=== PATIENT | male | born 1935 | race Caucasian/White ===

== ENCOUNTER → 2017-02-14 17:37 | Outpatient (CLI) | payer MEDICARE, BC ==
[2014-11-25 06:11] VITALS: BMI 27.6
[~2017-02-14 17:37] MED LIST: ASPIRIN325 MG PO; CALTRATE 600 M600 M1 PO; COZAAR50 MG PO; EZFE 200200 MG PO; LIPITOR40 MG PO; MAGNESIUM OXID250 MG PO; MIRAPEX1 MG PO; MULTIPLE VITAMI1 TA1 PO; NAPROSYN250 MG PO; PERCOCET 10/3251 TA1 PO; PRILOSEC20 MG PO; PROZAC20 MG PO; ZESTRIL20 MG PO
== END | disposition home or self-care (01) ==
LOC: D.LABREF 17:37
DX: M25.512 Pain in left shoulder (principal); Z11.8 Encounter for screening for other infectious and parasitic diseases

== ENCOUNTER 2017-03-05 05:26 | Inpatient (IN) | payer MEDICARE, BC ==
[2017-03-01 10:59] LABS: BASOPHILS 0.2 % (0-2); EOSINOPHILS 1.7 % (0-7); HEMATOCRIT 54.4 % (42.0-54.0); HEMOGLOBIN 18.4 g/dL (13.5-17.5); IMMATURE GRANULOCYTES 0.7 % (0-5); LYMPHOCYTES 22.9 % (15-50); MCH 34.1 pg (26.0-34.0); MCHC 33.8 g/dL (31.0-37.0); MCV 100.7 fL (80.0-100.0); MEAN PLATELET VOLUME 9.5 fL (7.4-10.4); MONOCYTES 8.5 % (2-11); PLATELET COUNT 141 10x3/uL (130-400); RDW 13.9 % (11.5-14.5); WBC 10.5 10x3/uL (4.8-10.8)
[2017-03-01 11:03] LABS: APPEARANCE CLEAR (CLEAR); BILIRUBIN NEGATIVE (NEGATIVE); COLOR YELLOW (YELLOW); GLUCOSE NEGATIVE (NEGATIVE); KETONE NEGATIVE (NEGATIVE); NITRITE NEGATIVE (NEGATIVE); PROTEIN NEGATIVE (NEGATIVE); UROBILINOGEN NORMAL (NORMAL)
[2017-03-01 11:16] LABS: APTT 27.4 SECONDS (22.8-39.4); INR 1.05 (0.85-1.17); PROTIME 13.5 SECONDS (11.6-15.0)
[2017-03-01 11:20] LABS: ANION GAP 10.7 mmol/L (8-16); CALCIUM 9.3 mg/dL (8.5-10.1); CARBON DIOXIDE 29.8 mmol/L (21.0-32.0); CREATININE - SERUM 1.1 mg/dL (0.6-1.3); POTASSIUM - SERUM 4.5 mmol/L (3.5-5.1)
[2017-03-05] VITALS (10 sets, daily range): BP systolic 92–142; BP diastolic 40–96; BMI 26.3
[~2017-03-05 05:26] MED LIST changes: -PERCOCET 10/3251 TA1 PO
--- NOTE | 2017-03-05 14:16 | NUR ---
SCDS APPLIED TO BILAT LOWER LEG. EXPLAINED TO PT AND FAMILY REASON FOR THEM. SIPPING CUP OF COFFEE AT PRESENT. NO NEEDS AT THIS TIME
--- NOTE | 2017-03-05 15:49 | OP ---
PATIENT NAME: JAVIER TUCKER MEDICAL RECORD: [id number] :35 LOCATION:D.[id number] ADMISSION DATE:03/05/17 SURGEON: HOLLY BARRIENTOS MD DATE OF OPERATION: 03/05/2017 PREOPERATIVE DIAGNOSIS: Chronic rotator cuff arthropathy of the left shoulder. POSTOPERATIVE DIAGNOSIS: Chronic rotator cuff arthropathy of the left shoulder. PROCEDURE: Reverse total shoulder arthroplasty of the left shoulder. ANESTHESIA: General. INTRAOPERATIVE COMPLICATIONS: None. SUMMARY OF PATHOLOGIC FINDINGS: The patient had substantial rotator cuff arthropathy with retracted tearing, significant glenohumeral arthritis as well as superolateral erosion. IMPLANTS USED: Arthrex reverse total shoulder arthroplasty system 135, 36 glenosphere, 36 metaphyseal component with a +6 polyethylene on a size 11 stem press-fit. OPERATIVE SUMMARY IN DETAIL: After obtaining the appropriate preoperative orthopedic surgery consent as well as anesthetic consultation, evaluation and clearance, the patient was brought to the operating room and placed on the operating table in supine position. After adequate general laryngeal mask airway was administered, the patient was placed in the beach chair position. All pressure points were well padded to include down leg peroneal pad as well as axillary roll. The patient was held firmly to the operating table using the vacuum pack suction system. The left upper extremity and shoulder were then prepped and draped in routine sterile fashion. The arm was held in Trimano arm holding device. Deltopectoral incision was taken down to the level of clavipectoral fascia which was incised. The cephalic vein was protected throughout the rest of the case and was unharmed at the end. Conjoined tendon was very gently retracted medially. The residual subscapularis was taken down and the humeral head was then dislocated into the wound. Proximal humeral head cut was made using the humeral head cutting guide. At this point, the cut protector was then tamped into place in the metaphyseal bone and the glenoid was approached. Circumferential labrectomy was followed by central pin placement and then the appropriate reaming for the metaglene component. Metaglene component was first anchored medially with compression screw and then inferiorly and superiorly with locking screws. Size 36 glenosphere was then put into place and tamped into place on the Cho taper with good fixation. Attention was then returned to the proximal humerus. The cut protection guide was taken off. Proximal reaming was then followed by serial and sequential reaming and broaching for a size 11. Size 11 stem and proximal metaphyseal component were tamped into place. Trials were undertaken and it was felt that the +6 was the most appropriate, +6 polyethylene was snapped [address]. Shoulder was reduced and taken through range of motion and found to be stable in all planes. Having completed this, the wound was copiously irrigated. The subscapularis was reapproximated back to the lesser tuberosity. Wound was again irrigated and closed with #1 Vicryl followed by skin maykel. Sterile dressings were applied. The patient was awakened and taken to recovery room in stable condition. All final needle and sponge counts were correct. OPERATIVE REPORT [id number] JAVIER TUCKER TRANSINT:[id number] Voice Confirmation ID: [id number] DOCUMENT ID: [id number] FLOYD HUNT, HOLLY STONE at 1549 CC: [id number] DICTATION DATE: 03/05/17 1221 AUXILIARY EQUIPMENT TENDER: 03/05/17 1447 ADM IN [facility] [address] [place] [address]
--- NOTE | 2017-03-05 20:51 | NUR ---
REC'D.IN BED SITTING IN UPRIGHT POSITION.DRSG. DRY AND INTACT TO LEFT SHOULDER.WITH CONTINUOUS BLK. INFUSING.VOIDED 200CC SULMA COLORED URINE.FINGERS/NAILBED PINK WARM BLANCHES WELL.GOOD RADIAL PULSE. SLING IN PLACE. WILL CONTINUE TO MONITORFOR ANY CHGES. AND FOLLOW CURRENT PLAN OF CARE.
[2017-03-06] VITALS: BP 102/59
[2017-03-06 04:00] VITALS: BP 121/68
[2017-03-06 06:25] LABS: HEMATOCRIT 49.1 % (42.0-54.0); MCH 32.9 pg (26.0-34.0); MCHC 32.6 g/dL (31.0-37.0); MCV 100.8 fL (80.0-100.0); MEAN PLATELET VOLUME 9.8 fL (7.4-10.4); RBC 4.87 10x6/uL (4.20-6.10); RDW 14.2 % (11.5-14.5); WBC 16.4 10x3/uL (4.8-10.8)
--- NOTE | 2017-03-06 07:30 | NUR ---
RECIEVED PT DURING WALKING ROUNDS. PT RESTING IN BED WITH NO COMPLAINTS OF PAIN OR DISCOMFORT AT THIS TIME. ASSESSMENT DONE PER FLOWSHEET. BED IN LOW POSITION AND CALL LIGHT WITHIN REACH. WILL CONTINUE TO MONITOR.
[2017-03-06] MEDS ORDERED: PERCOCET 10/3251 TA1 PO (08:22)
[2017-03-06 08:25] VITALS: BP 142/74
--- NOTE | 2017-03-06 08:33 | NUR ---
CM visited with patient and to see if they were in need of anything prior to discharging today. Both stated that they were good and denied any needs at this time.
--- NOTE | 2017-03-06 11:45 | NUR ---
EPIDURAL BLOCK REMOVED AT THIS TIME BY DR. TARIQ. PT AWAITING DISCHARGE. WILL CONTINUE TO MONITOR.
[2017-03-06 11:53] VITALS: BP 126/61
--- NOTE | 2017-03-06 13:21 | NUR ---
IV REMOVED AND DISCHARGE INSTRUCTIONS GIVEN. PT DISCHARGED VIA WHEELCHAIR TO HOME WITH A FAMILY MEMBER.
== END 2017-03-06 13:22 | disposition home or self-care (01) | DRG 483 ==
LOC: D.SDCHOLD 05:26 → D.MS 13:07
PROVIDERS: ADMIT Orthopaedic Surgery
PROC: 0RRK00Z Replacement of Left Shoulder Joint with Reverse Ball and Socket Synthetic Substitute, Open Approach (ICD-10-PCS; principal; 2017-03-05 10:00)
DX: M12.812 Other specific arthropathies, not elsewhere classified, left shoulder (principal); M13.812 Other specified arthritis, left shoulder; Z86.73 Personal history of transient ischemic attack (TIA), and cerebral infarction without residual deficits; I25.10 Atherosclerotic heart disease of native coronary artery without angina pectoris; Z95.5 Presence of coronary angioplasty implant and graft; I10 Essential (primary) hypertension

== ENCOUNTER 2019-07-14 22:41 | Inpatient (IN) | payer MEDICARE, BC ==
[~2019-07-14] VITALS: Ht 171.4 cm; Wt 76.8 kg
[~2019-07-14 22:41] MED LIST changes: +PERCOCET 10/3251 TA1 PO
[2019-07-14] MEDS ORDERED: PROZAC20 MG PO (23:05)
[2019-07-14] MEDS ORDERED: COZAAR50 MG PO (23:05)
[2019-07-14] MEDS ORDERED: LIPITOR40 MG PO (23:05)
[2019-07-14] MEDS ORDERED: MIRAPEX1 MG PO (23:06)
[2019-07-14] MEDS ORDERED: OMEPRAZOLE20 M1 PO (23:06)
[2019-07-14] MEDS ORDERED: NEURONTIN 300300 MG PO (23:06)
--- NOTE | 2019-07-14 23:15 | NUR ---
OCCULT STOOL NEG INFORMED.
[2019-07-15 01:10] LABS: CKMB 1.3 U/L (0.0-3.6); CREATINE KINASE 116 UL (21-232); TROPONIN-I 0.029 ng/mL (0.000-0.060)
[2019-07-15 02:00] LABS: HEMATOCRIT 50.2 % (42.0-54.0); HEMOGLOBIN 17.1 g/dL (13.5-17.5); MCH 33.5 pg (26.0-34.0); MCHC 34.1 g/dL (31.0-37.0); MCV 98.2 fL (80.0-100.0); MEAN PLATELET VOLUME 9.9 fL (7.4-10.4); RBC 5.11 10x6/uL (4.20-6.10); WBC 10.9 10x3/uL (4.8-10.8)
[2019-07-15 02:04] LABS: INR 1.14 (0.85-1.17); PROTIME 14.6 SECONDS (11.6-15.0)
[2019-07-15 04:19] LABS: BILIRUBIN NEGATIVE (NEGATIVE); GLUCOSE NEGATIVE (NEGATIVE); KETONE NEGATIVE (NEGATIVE); NITRITE NEGATIVE (NEGATIVE); UROBILINOGEN NORMAL (NORMAL)
[2019-07-15 04:20] LABS: BACTERIA NONE SEEN /hpf (NEGATIVE); EPITHELIAL CELLS 0-5 /hpf (0-5); RED CELLS - URINE 0-5 /hpf (0-5); WHITE CELLS - URINE 0-5 /hpf (NEGATIVE)
[2019-07-15 05:22] VITALS: BP 112/50
[2019-07-15 05:45] VITALS: BP 112/50; BMI 26.3
--- NOTE | 2019-07-15 05:57 | NUR ---
RECEIVED REPORT FROM DALE ROJAS IN ER. ARRIVED TO FLOOR ON STRETCHER. TRANSFERED SELF TO FLOOR. ALERT AND ORIENTED X4. UP AD MANDY. DENIES ANY CHEST PAIN. F/C INTACT WITH CLEAR YELLOW URINE DRAINING TO BEDSIDE DRAINAGE BAG. SKIN INTACT. IV TO RT FA WITH HEPRIN INFUSING AT 13CC/HR. DENIES ANY NEEDS. ASSESSMENT COMPLETED.
[2019-07-15 11:02] VITALS: BP 119/65
[2019-07-15 12:00] VITALS: BP 128/65
[2019-07-15 13:21] VITALS: BMI 26.2
--- NOTE | 2019-07-15 14:03 | NUR ---
PT RESTING COMFORTABLY IN BED, DENIES ANY NEEDS AT THIS TIME. CALL LIGHT IN REACH, NAD NOTED, WILL CONTINUE TO MONITOR.
[2019-07-15 14:55] VITALS: Ht 171.4 cm; Wt 76.8 kg
--- NOTE | 2019-07-15 15:07 | NUR ---
Rehab Note - Acute Inpatient Rehab prescreen order received. The patient is a new admit, has pending PT Eval at this time. Will follow at this time. Thank you for this referral! Marie Hou RN Clinical Liaison, [facility] [place], [place] Rehab
[2019-07-15 15:29] LABS: ALBUMIN 3.4 g/dL (3.4-5.0); ANION GAP 16.8 mmol/L (8-16); BILIRUBIN - TOTAL 0.65 mg/dL (0.2-1.3); CALCIUM 8.9 mg/dL (8.5-10.1); CARBON DIOXIDE 24.7 mmol/L (21.0-32.0); CREATININE - SERUM 1.4 mg/dL (0.6-1.3); POTASSIUM - SERUM 4.5 mmol/L (3.5-5.1); PROTEIN - SERUM 6.6 g/dL (6.4-8.2)
[2019-07-15 16:00] VITALS: BP 148/89
--- NOTE | 2019-07-15 19:47 | NUR ---
PT LYING IN BED AWAKE ALERT AND ORIENTED x4 NO SIGNS OR SYMPTOMS OF DISTRESS NOTED. RESPIRATIONS EVEN AND UNLABORED. NO COMPLAINTS AT THIS TIME. PT ENCOURAGED TO CALL FOR HELP WHEN GETTING IN AND OUT OF BED. CALL LIGHT WITH INREACH AND BED ISIN THE LOWEST POSITON. WILL CONTINUE TO MONITOR.
[2019-07-15 22:02] VITALS: BP 139/74
[2019-07-16 01:14] VITALS: BP 118/68
--- NOTE | 2019-07-16 01:42 | NUR ---
I have reviewed this patient and I concur with the Shift Assessment completed by the Licensed Practical Nurse today this shift.
--- NOTE | 2019-07-16 03:04 | NUR ---
PT LYING IN BED RESTING WITH EYES CLOSED. NO SIGNS OF DISTRESS NOTED. RESPIRATIONS EVEN AND UNLABORED. PT ENCOURAGED TO CALL FOR HELP WHEN GETTING IN AND OUT OF BED. PT VERBALIZES UNDERSTANDING. CALL LIGHT WITH IN REACH AND BED IS INITS LOWEST POSITION. WILL CONTINUE TO MONITOR
[2019-07-16 04:37] LABS: HEMATOCRIT 50.1 % (42.0-54.0); HEMOGLOBIN 16.5 g/dL (13.5-17.5); MCHC 32.9 g/dL (31.0-37.0); MEAN PLATELET VOLUME 9.6 fL (7.4-10.4); RDW 14.2 % (11.5-14.5)
[2019-07-16 04:40] LABS: MCV 100.2 fL (80.0-100.0); WBC 7.1 10x3/uL (4.8-10.8)
[2019-07-16 06:51] VITALS: BP 140/77
--- NOTE | 2019-07-16 08:29 | NUR ---
AM MEDS GIVEN AT THIS TIME. PT UP TO SIDE OF BED, EATING BREAFAST. RT FA INFUSING HEPARIN AT 10CC/HR. KAUFMAN DRAINING DARK URINE TO GRAVITY. PT DENIES ANY NEEDS AT THIS TIME. CALL LIGHT IN REACH, NAD NOTED, WILL CONTINUE TO MONITOR.
[2019-07-16 11:25] VITALS: BP 120/48
[2019-07-16 14:26] VITALS: BP 105/60
--- NOTE | 2019-07-16 14:30 | NUR ---
HELPED PT TO BATHROOM AND BACK TO BED. PT DENIES ANY OTHER NEEDS AT THIS TIME. CALL LIGHT IN REACH, NAD NOTED, WILL CONTINUE TO MONITOR.
--- NOTE | 2019-07-16 18:08 | MORECARE ---
CASE MANAGEMENT DISCHARGE SUMMARY PATIENT: JAVIER TUCKER UNIT: [id number] ADM DATE: 07/15/19 AGE: 84 : 35 SEX: M ROOM/BED: D.2140 AUTHOR: NOHEMI,DOC PHYSICIAN: REFERRING PHYSICIAN: MELANIE FRIAS MD DATE OF SERVICE: 07/16/19 Discharge Plan Patient Name: JAVIER TUCKER Facility: [facility]:[place] : 1935 Planned Disposition: Home Anticipated Discharge Date: 07/16/19 Discharge Date: Expected LOS: 1 Initial Reviewer: [email or web address] Initial Review Date: 07/16/2019 Generated: 07/16/19 7:07 pm Comments DCP- Discharge Planning Updated by [email or web address]: Koffi Baker on 07/16/19 5:[address] Patient Name: JAVIER TUCKER Admission Status: ER Accout number: [id number] Admission Date: 07-15-2019 : 1935 Admission Diagnosis: Attending: MELANIE FRIAS Current LOS: 1 Anticipated DC Date: 07-16-2019 Planned Disposition: Home Primary Insurance: MEDICARE A & B Discharge Planning Comments: CM RECEIVED ORDER FOR INPATIENT REHAB PRESCREENING. CM MET WITH PT IN ROOM TO DISCUSS DISCHARGE PLANNING AND NEEDS. PT REPORTS LIVING AT HOME INDEPENDENTLY WITH HIS SPOUSE. PT HAS A CANE HE USES OCCAISIONALLY. [facility]. PT HAS NO OUTSIDE SERVICES ASSISTING IN THE HOME. CM DISCUSSED AVAILABILITY OF HOME HEALTH, REHAB SERVICES AND MEDICAL EQUIPMENT. PT DENIES DISCHARGE NEEDS, REPORTS HIS WILL PICK HER UP FOR DISCHARGE HOME. IMPORTANT MESSAGE FROM MEDICARE PROVIDED AND EXPLAINED. REFUSAL OF INPATIENT REHAB SIGNED. PT PLANS TO GO HOME WITH SPOUSE, DENIES DISCHARGE NEEDS. CM TO FOLLOW AND ASSIST IF NEEDED. Wet Chemistry Analyst: Koffi Baker DCPIA - Discharge Planning Initial Assessment Updated by [id number]: Koffi Baker on 07/16/19 6:02 pm * Is the patient Alert and Oriented? Yes * How many steps to enter\exit or inside your home? * [facility] [place] [facility] [place] * Preadmission Environment Home with Family * ADLs Independent * Equipment Cane * Other Equipment [facility] IS PREFERRED PROVIDER * List name and contact numbers for known caregivers / representatives who currently or will assist patient after discharge: YVAN TUCKER SPOUSE, * Verbal permission to speak to the caregivers and representatives has been obtained from the patient. N/A * Community resources currently utilized None * Please name any agencies selected above. NONE * Additional services required to return to the preadmission environment? No * Can the patient safely return to the preadmission environment? Yes * Has this patient been hospitalized within the prior 30 days at any hospital? No Coverage Notice Reviewer: [email or web address] Baker Notice Issued Date-Time: 07/16/2019 13:30 Notice Type: Patient Choice Letter Notice Delivered To: Patient Relationship to Patient: Physician Neonatology Name: Delivery Method: HAND - Hand Delivered Stephanie Days: Prior Verbal Notification: Recipient Understood Notice: Yes Recipient Signature: Yes Med Rec Note Co-signed by Attending: Coverage Notice Comment: REFUSED INPAITIENT REHAB Reviewer: [email or web address] Baker Notice Issued Date-Time: 07/16/2019 13:30 Notice Type: IM Discharge Notice Notice Delivered To: Patient Relationship to Patient: Physician Neonatology Name: Delivery Method: HAND - Hand Delivered Stephanie Days: Prior Verbal Notification: Recipient Understood Notice: Yes Recipient Signature: Yes Med Rec Note Co-signed by Attending: Coverage Notice Comment: Patient Name: JAVIER TUCKER Page [phone] at 1808 All edits/amendments must be made on the electronic document DICTATION DATE: 07/16/191806 POLITICAL ORGANIZER: COLT 07/16/191806 RPT#: [id number] DC DATE: STATUS: ADM IN [facility] [address] [place] [address] END OF REPORT
[2019-07-16 18:31] VITALS: BP 150/72
[2019-07-16 20:00] VITALS: BP 133/77
--- NOTE | 2019-07-16 20:21 | NUR ---
EVENING ROUNDS COMPLETED. PT AAOX4, VSS, NO S/S OF DISTRESS. PT DENIES PAIN. KAUFMAN INTACT/DRAINING. URINE APPEARS SULMA/CONC. PT DENIES ANY FURTHER NEEDS AT THIS TIME. WILL CPOC. CL WITHIN REACH. HEPARIN INFUSING @1O.
[2019-07-17 01:33] VITALS: BP 128/75
[2019-07-17 04:00] VITALS: BP 135/76
[2019-07-17 05:55] LABS: HEMATOCRIT 49.9 % (42.0-54.0); HEMOGLOBIN 16.7 g/dL (13.5-17.5); MCH 33.1 pg (26.0-34.0); MCHC 33.5 g/dL (31.0-37.0); MEAN PLATELET VOLUME 9.4 fL (7.4-10.4); RBC 5.04 10x6/uL (4.20-6.10); RDW 13.8 % (11.5-14.5)
[2019-07-17 05:59] LABS: WBC 8.9 10x3/uL (4.8-10.8)
[2019-07-17 09:35] VITALS: BP 136/68
[2019-07-17] MEDS ORDERED: ELIQUIS5 MG PO (12:00)
[2019-07-17] MEDS ORDERED: ELIQUIS2.5 MG PO (12:01)
[2019-07-17] MEDS ORDERED: FLOMAX0.4 MG PO (12:08)
[2019-07-17 13:42] VITALS: BP 128/69
--- NOTE | 2019-07-18 09:56 | MORECARE ---
CASE MANAGEMENT DISCHARGE SUMMARY PATIENT: JAVIER TUCKER UNIT: [id number] ADM DATE: 07/15/19 AGE: 84 : 35 SEX: M ROOM/BED: D.2140 AUTHOR: NOHEMI,DOC PHYSICIAN: REFERRING PHYSICIAN: MELANIE FRIAS MD DATE OF SERVICE: 07/18/19 Discharge Plan Patient Name: JAVIER TUCKER Facility: [facility]:[place] : 1935 Planned Disposition: Home Anticipated Discharge Date: 07/17/19 Discharge Date: 07/17/2019 Expected LOS: 2 Initial Reviewer: [email or web address] Initial Review Date: 07/16/2019 Generated: 07/18/19 10:56 am DCP- Discharge Planning Updated by [email or web address]: Koffi Baker on 07/16/19 5:[address] Patient Name: JAVIER TUCKER Admission Status: ER Accout number: [id number] Admission Date: 07-15-2019 : 1935 Admission Diagnosis: Attending: MELANIE FRIAS Current LOS: 1 Anticipated DC Date: 07-16-2019 Planned Disposition: Home Primary Insurance: MEDICARE A & B Discharge Planning Comments: CM RECEIVED ORDER FOR INPATIENT REHAB PRESCREENING. CM MET WITH PT IN ROOM TO DISCUSS DISCHARGE PLANNING AND NEEDS. PT REPORTS LIVING AT HOME INDEPENDENTLY WITH HIS SPOUSE. PT HAS A CANE HE USES OCCAISIONALLY. [facility]. PT HAS NO OUTSIDE SERVICES ASSISTING IN THE HOME. CM DISCUSSED AVAILABILITY OF HOME HEALTH, REHAB SERVICES AND MEDICAL EQUIPMENT. PT DENIES DISCHARGE NEEDS, REPORTS HIS WILL PICK HER UP FOR DISCHARGE HOME. IMPORTANT MESSAGE FROM MEDICARE PROVIDED AND EXPLAINED. REFUSAL OF INPATIENT REHAB SIGNED. PT PLANS TO GO HOME WITH SPOUSE, DENIES DISCHARGE NEEDS. CM TO FOLLOW AND ASSIST IF NEEDED. Janitor Supervisor: Koffi Baker DCPIA - Discharge Planning Initial Assessment Updated by [id number]: Koffi Baker on 07/16/19 6:02 pm * Is the patient Alert and Oriented? Yes * How many steps to enter\exit or inside your home? * [facility] [place] [facility] [place] * Preadmission Environment Home with Family * ADLs Independent * Equipment Cane * Other Equipment [facility] IS PREFERRED PROVIDER * List name and contact numbers for known caregivers / representatives who currently or will assist patient after discharge: YVAN TUCKER SPOUSE, * Verbal permission to speak to the caregivers and representatives has been obtained from the patient. N/A * Community resources currently utilized None * Please name any agencies selected above. NONE * Additional services required to return to the preadmission environment? No * Can the patient safely return to the preadmission environment? Yes * Has this patient been hospitalized within the prior 30 days at any hospital? No Coverage Notice Reviewer: LORIE Baker Notice Issued Date-Time: 07/16/2019 13:30 Notice Type: Patient Choice Letter Notice Delivered To: Patient Relationship to Patient: Cashier Receptionist Name: Delivery Method: HAND - Hand Delivered Stephanie Days: Prior Verbal Notification: Recipient Understood Notice: Yes Recipient Signature: Yes Med Rec Note Co-signed by Attending: Coverage Notice Comment: REFUSED INPAITIENT REHAB Reviewer: [email or web address] Baker Notice Issued Date-Time: 07/16/2019 13:30 Notice Type: IM Discharge Notice Notice Delivered To: Patient Relationship to Patient: Cashier Receptionist Name: Delivery Method: HAND - Hand Delivered Stephanie Days: Prior Verbal Notification: Recipient Understood Notice: Yes Recipient Signature: Yes Med Rec Note Co-signed by Attending: Coverage Notice Comment: Last DP export: 07/16/19 5:08 p Patient Name: JAVIER TUCKER Page [phone] at 0956 All edits/amendments must be made on the electronic document DICTATION DATE: 07/18/19955 FINANCIAL ANALYST: COLT 07/18/19955 RPT#: [id number] DC DATE:07/17/19 STATUS: DIS IN [facility] [address] [place] [address] END OF REPORT
== END 2019-07-17 17:16 | disposition home or self-care (01) | DRG 176 ==
LOC: D.ER 22:41 → D.M2 07-15 01:48 → D.SDCHOLD 07-17 14:46 → D.M2 07-17 14:46
PROVIDERS: Family Medicine; ADMIT Internal Medicine Nephrology; ATTEND Internal Medicine Nephrology
DX: I26.99 Other pulmonary embolism without acute cor pulmonale (principal); N13.8 Other obstructive and reflux uropathy; N20.1 Calculus of ureter; N40.1 Benign prostatic hyperplasia with lower urinary tract symptoms; G25.81 Restless legs syndrome; F32.9 Major depressive disorder, single episode, unspecified; G47.33 Obstructive sleep apnea (adult) (pediatric); I25.10 Atherosclerotic heart disease of native coronary artery without angina pectoris; I10 Essential (primary) hypertension; E78.5 Hyperlipidemia, unspecified; Z86.73 Personal history of transient ischemic attack (TIA), and cerebral infarction without residual deficits

== ENCOUNTER 2019-08-14 05:35 | Day surgery (SDC) | payer MEDICARE, BC ==
[~2019-08-14] VITALS: Ht 170.2 cm; Wt 74.8 kg
[~2019-08-14 05:35] MED LIST changes: +ELIQUIS2.5 MG PO; +ELIQUIS5 MG PO; +FLOMAX0.4 MG PO; +NEURONTIN 300300 MG PO; +OMEPRAZOLE20 M1 PO
[2019-08-14 06:14] LABS: ANION GAP 8.4 mmol/L (8-16); CALCIUM 8.9 mg/dL (8.5-10.1); CARBON DIOXIDE 29.9 mmol/L (21.0-32.0); CREATININE - SERUM 1.2 mg/dL (0.6-1.3); POTASSIUM - SERUM 4.3 mmol/L (3.5-5.1)
[2019-08-14 06:17] LABS: BASOPHILS 0.2 % (0-2); EOSINOPHILS 1.2 % (0-7); HEMATOCRIT 50.2 % (42.0-54.0); IMMATURE GRANULOCYTES 0.3 % (0-5); LYMPHOCYTES 17.4 % (15-50); MCH 31.8 pg (26.0-34.0); MCHC 31.9 g/dL (31.0-37.0); MCV 99.8 fL (80.0-100.0); MEAN PLATELET VOLUME 9.4 fL (7.4-10.4); MONOCYTES 10.3 % (2-11); NEUTROPHILS 70.6 % (40-80); RBC 5.03 10x6/uL (4.20-6.10); RDW 14.1 % (11.5-14.5); WBC 10.7 10x3/uL (4.8-10.8)
[2019-08-14 06:31] LABS: APTT 31.3 SECONDS (22.8-39.4); INR 1.12 (0.85-1.17); PROTIME 14.3 SECONDS (11.6-15.0)
[2019-08-14] MEDS ORDERED: B12 (06:34)
[2019-08-14 06:44] LABS: PLATELET COUNT 191 10x3/uL (130-400)
[2019-08-14 06:50] VITALS: BP 117/72; Ht 170.2 cm; Wt 74.8 kg
--- NOTE | 2019-08-14 10:05 | NUR ---
1000-REC'D FROM RR AWAKE AND ALERT.VSS. PAIN 09/13. REVIEWED DISCHARGE CRITERIA. CL IN EASY REACH. COFFEE AND ICE WATER AT BEDSIDE
--- NOTE | 2019-08-14 10:37 | NUR ---
1030-FULL LIQUID TRAY TO ROOM.
--- NOTE | 2019-08-14 14:14 | NUR ---
1130-DISCHARGE CRITERIA MET. ESCORTED OUT VIA W/C WITH SPOUSE AWAITING TO DRIVE HOME.
--- NOTE | 2019-08-15 11:33 | OP ---
PATIENT NAME: JAVIER TUCKER MEDICAL RECORD: [id number] :35 LOCATION:D.[facility] ADMISSION DATE: SURGEON: ARJUN ANDERSON MD DATE OF OPERATION: 08/14/2019 SURGEON: Arjun Anderson MD ANESTHESIA: General anesthesia by Marnie Layne CRNA. DIAGNOSIS: Right renal stone 7 mm, right distal ureteral stone 8 mm, bladder outlet obstruction with elevated PSA of 8.4. PROCEDURE: Cystoscopy, right ureteral stent insertion 6-Grenadian x 24 cm with string attached. Right renal ESWL times 2000 shocks, right distal ureteral ESWL times 3000 shocks. FINDINGS: Radiodense renal and ureteral stones. The renal stone is 7 mm in size. The distal ureteral stone is 8 mm in size. Cystoscopy shows a diffusely inflamed bladder with no bladder tumors. There was a very heavily trabeculated bladder with diverticula. Single ureteral orifices are seen on each side. The site of obstruction is the bladder neck. There is mild lateral lobe obstruction of the prostate. CLINICAL HISTORY: This is an 84-year-old male, who was recently hospitalized for a right apical pulmonary embolism. At the time of his hospitalization, he had urinary retention. His PSA was found to be elevated at 8.4. He has a positive family history of prostate cancer with 3 of his brothers having prostate cancer. He had a CT scan of the abdomen and pelvis showing 7 mm right lower pole renal stone and what was reported to be a 6 mm right distal ureteral stone. He comes now to have the renal stones treated. We will have to wait until the Covid 19 moratorium on elective surgery is lifted in order to deal with his elevated PSA issues. He was given ampicillin and sulbactam 3 grams php consultant to the OR. HE IS ALLERGIC TO ROBINUL. DESCRIPTION OF PROCEDURE: The patient was placed on the lithotripsy treatment table. Fluoroscopy was performed to identify the stone. We could see the stones as radiodensities and therefore the patient was given induction of general anesthesia. He was then placed in the lithotomy position and prepped and draped. In the interim, the ESWL hvac maintenance technician managed to target the renal stone and started lithotripsy on the renal stone. Cystoscopy was performed. The site of prostatic obstruction seems to be the bladder neck, which is quite elevated. There is some mild enlargement of the lateral lobes. The right ureteral orifice was intubated with an open-ended 5-Grenadian ureteral catheter. We then managed to get a Sensor wire through the lumen of the ureteral catheter up into the renal pelvis. The ureteral catheter was then removed, leaving the wire in place. Over the wire, we inserted a 6-Grenadian x 24 cm ureteral stent. Due to the large size of the distal ureteral stone, I decided not to proceed with ureteroscopy of the distal stone, but instead decided to go ahead and have lithotripsy done on the stone. This was saving from struggling with a stone that impacted in the ureter or having to break it down with the laser fiber. Once the stent was in correct position, the bladder was emptied through the cystoscope sheath and the scope was withdrawn entirely. The string from the distal end of the stent is maintained. It hangs out of the urethra. It was OPERATIVE REPORT [id number] JAVIER TUCKER tied to a knot to itself and then cut shorter. After 2000 shocks in the kidney, the renal stone completely broke up. We then targeted the stone in the ureter. After 3000 shocks in the ureter, the stone in the ureter was nicely broken up. The procedure was terminated. I will see the patient in followup in 2 weeks' time with a K[facility] at [facility]. TRANSINT:[id number] Voice Confirmation ID: [id number] DOCUMENT ID: [id number] ARJUN ANDERSON MD at 1133 CC: [id number] DICTATION DATE: 08/14/19 0855 ARTS AND CRAFTS INSTRUCTOR: 08/14/19 1117 [facility] 08/14/19 [place] [id number] [place] [id number]
== END 2019-08-14 11:30 | disposition home or self-care (01) ==
LOC: D.OPS 05:35
PROVIDERS: Anesthesiology; ATTEND Urology
DX: N20.0 Calculus of kidney (principal); N20.1 Calculus of ureter; N32.0 Bladder-neck obstruction; R97.20 Elevated prostate specific antigen [PSA]

== ENCOUNTER → 2019-10-13 21:18 | Outpatient (CLI) | payer MEDICARE, BC ==
[2019-08-14 06:50] VITALS: BMI 25.9
[~2019-10-13 21:18] MED LIST changes: +B12
== END | disposition home or self-care (01) ==
LOC: D.LABREF 21:18
PROVIDERS: ATTEND Urology
DX: R82.90 Unspecified abnormal findings in urine (principal)